=== PATIENT | female | born 1975 | race American Indian/Alaskan Native ===

== ENCOUNTER 2025-04-26 07:25 | Outpatient (CLI) | payer MEDICAID ==
--- NOTE | 2025-04-26 11:55 | ELECTROCARDIOGRAPH REPORT ---
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 JAIME Roca Measurements Intervals [place] Rate: 55 P: 59 LA: 136 QRS: 51 QRSD: 117 T: 41 QT: 478 QTc: 458 Interpretive Statements Sinus bradycardia Nonspecific intraventricular conduction delay Electronically Signed On 04-26-2025 12:49:[address] JAIME Roca Please click the below link to view image of tracing.
== END 2025-04-26 23:59 | disposition home or self-care (01) ==
LOC: RAD 07:25
PROVIDERS: ATTEND Physician Assistant
DX: R00.1 Bradycardia, unspecified (principal); F11.20 Opioid dependence, uncomplicated; I45.4 Nonspecific intraventricular block
CPT/HCPCS: 93005